=== PATIENT | male | born 1980 | race Caucasian/White ===

== ENCOUNTER 2023-12-25 06:27 | Day surgery (SDC) | payer OTHER ==
[2023-12-22 11:00] LABS: BASOPHILS # (AUTO) 0.07 K/uL (0.00-0.20); EOSINOPHILS # (AUTO) 0.41 K/uL (0.00-0.70); EOSINOPHILS % (AUTO) 5.8 % (0.0-8.0); HEMATOCRIT 44.1 % (42-54); IMMATURE GRANULOCYTE ABSOLUTE 0.06 K/uL (0-1); LYMPHOCYTES # (AUTO) 2.1 K/uL (1.0-4.8); LYMPHOCYTES % (AUTO) 29.3 % (21.0-51.0); MEAN CORPUSCULAR HGB CONC 33.1 g/dL (32.0-36.0); MEAN CORPUSCULAR VOLUME 90.7 fL (79-99); MONOCYTES # (AUTO) 0.7 K/uL (0.1-1.0); MONOCYTES % (AUTO) 9.9 % (3.0-13.0); NEUTROPHILS # (AUTO) 3.8 K/uL (1.8-7.7); NEUTROPHILS % (AUTO) 53.2 % (40.0-77.0); PLATELET COUNT (AUTO) 211 K/uL (130-400); RED BLOOD CELL COUNT(AUTO) 4.86 MIL/uL (4.50-6.20); WHITE BLOOD COUNT (AUTO) 7.1 K/uL (4.8-10.8)
[2023-12-22 11:13] VITALS: BP 128/87; PULSE 71; RESP 17
[2023-12-22 11:14] LABS: CREATININE 1.1 mg/dL (0.5-1.3); POTASSIUM 4.5 mmol/L (3.5-5.1)
[~2023-12-25] VITALS: Ht 177.8 cm; Wt 138.5 kg
[2023-12-25] VITALS (14 sets, daily range): BP systolic 112–146; BP diastolic 67–94; PULSE 57–71; RESP 13–18
[~2023-12-25 06:27] MED LIST: CETI10TA57 PO; FLUT15.845 NS; HALO15OI4 TP
[2023-12-25] MEDS ORDERED: acetaMINOPHEN 1,000 MG/100 ML VIAL IV ONE (07:01)
[2023-12-25] MEDS ORDERED: KETAMINE 50MG/ML SYRINGE 50 MG/ML DISP.SYRIN ONE (07:03)
[2023-12-25] MEDS ORDERED: FAMOTIDINE 20MG VIAL IV ONE (07:03)
[2023-12-25] MEDS ORDERED: ROPivacaine 0.5% 5MG/ML 30ML ONE (07:03)
[2023-12-25] MEDS: ceFAZolin SODIUM 2 GM VIAL ONE (07:11)
[2023-12-25] MEDS: ceFAZolin SODIUM 1 GM VIAL ONE (07:11)
[2023-12-25] MEDS: LACTATED RINGERS 1000ML 1,000 ML IV ONE (07:12)
[2023-12-25] MEDS ORDERED: MIDAZOLAM HCL 1 MG/ML 2ML VIAL ONE (07:14)
[2023-12-25] MEDS ORDERED: proPOFol 10 MG/ML 20ML VIAL IV ONE (07:14)
[2023-12-25] MEDS ORDERED: LIDOCAINE PF 100MG/5ML (2%) SYRINGE 5ML ONE (07:14)
[2023-12-25] MEDS ORDERED: rocuRONium bROMide 10MG/1ML 5ML VL ONE (07:14)
[2023-12-25] MEDS ORDERED: FENTanyl CITRate PF 50 MCG/1 ML 2ML VIAL ONE (07:15)
[2023-12-25] MEDS ORDERED: dexaMETHasone SOD PHOSPHATE 10MG/ML 1ML VIAL ONE (08:03)
[2023-12-25] MEDS ORDERED: ONDANSETRON 4MG INJ ONE (08:03)
[2023-12-25] MEDS ORDERED: GLYCOPYRROLATE 0.2 MG/ML 5 ML VIAL ONE (08:26)
[2023-12-25] MEDS ORDERED: NEOSTIGMINE METHYLSULFATE 1MG/ML IV ONE (08:27)
[2023-12-25] MEDS ORDERED: IBUP-2077 PO (08:57)
[2023-12-25] MEDS ORDERED: ACET-2079 PO (08:57)
[2023-12-25] MEDS: KETOROLAC 30MG VIAL (30MG/ML) ONE (09:14)
== END 2023-12-25 10:45 ==
LOC: DAH 06:27
PROVIDERS: ATTEND Orthopaedic Surgery
DX: S83.241A Other tear of medial meniscus, current injury, right knee, initial encounter (principal); S83.281A Other tear of lateral meniscus, current injury, right knee, initial encounter; M17.11 Unilateral primary osteoarthritis, right knee; L40.50 Arthropathic psoriasis, unspecified; G89.29 Other chronic pain; L40.9 Psoriasis, unspecified; F41.9 Anxiety disorder, unspecified; Z98.890 Other specified postprocedural states; X58.XXXA Exposure to other specified factors, initial encounter; Y93.89 Activity, other specified; Y92.89 Other specified places as the place of occurrence of the external cause; Y99.8 Other external cause status
CPT/HCPCS: 80048; 85025; 36415; 29880; A4663; J7120 ×2; A4649 ×2; J3490 ×4; J3010; J0690 ×2; J1100; J2001; J2250; J2704; J2405; J1885; J2710; J2795; A6223; A4215; A4223; A4222; A4221; A6450